=== PATIENT | female | born 1945 | race Caucasian/White ===

== ENCOUNTER 2016-05-26 12:52 | Emergency (ER) | payer MEDICARE, OTHER ==
[~2016-05-26] VITALS: Ht 157.5 cm; Wt 84.4 kg
[~2016-05-26 12:52] MED LIST: CLON0.2D6 TD; CLOP75TA41 PO; ERGO1CAP23 PO; GLIP-115 PO; LOSA100T27 PO; METF-312 PO; PANT1INJ3 PO; ROSU20TA14 PO; TRAM-297 PO; VERA180T14 PO
[2016-05-26 14:31] VITALS: BP 180/72
[2016-05-26] MEDS ORDERED: KETOROLAC TROMETH 30 MG/ML 1ML VIAL IM ONE (15:00)
== END 2016-05-26 15:37 | disposition home or self-care (01) ==
LOC: ER 13:00
DX: M19.012 Primary osteoarthritis, left shoulder (principal); M17.11 Unilateral primary osteoarthritis, right knee; M19.90 Unspecified osteoarthritis, unspecified site; E11.9 Type 2 diabetes mellitus without complications; I10 Essential (primary) hypertension; Z88.5 Allergy status to narcotic agent; Z79.899 Other long term (current) drug therapy
CPT/HCPCS: 73030; 73562; 93005; 96372; 99284; J1885

== ENCOUNTER 2017-05-25 17:14 | Emergency (ER) | payer MEDICARE, OTHER ==
[~2017-05-25] VITALS: Ht 157.5 cm; Wt 82.6 kg
[~2017-05-25 17:14] MED LIST changes: -METF-312 PO; +METF-370 PO
[2017-05-25 20:09] VITALS: BP 150/71
[2017-05-25] MEDS ORDERED: TRIAMCINOLONE 40MG/ML 1ML VIAL IM ONE (20:30)
== END 2017-05-25 21:02 | disposition home or self-care (01) ==
LOC: ER 17:15
DX: M19.012 Primary osteoarthritis, left shoulder (principal); M19.90 Unspecified osteoarthritis, unspecified site; E11.9 Type 2 diabetes mellitus without complications; E78.5 Hyperlipidemia, unspecified; I10 Essential (primary) hypertension; Z88.6 Allergy status to analgesic agent; Z79.899 Other long term (current) drug therapy; Z90.49 Acquired absence of other specified parts of digestive tract; Z95.0 Presence of cardiac pacemaker
CPT/HCPCS: 20610; 73030; 73060; 99284; J3301